=== PATIENT | male | born 1985 | race Caucasian/White ===

== ENCOUNTER 2016-06-30 14:56 | Emergency (ER) | payer BC ==
[2016-06-30 15:02] VITALS: TEMP 98.4
--- NOTE | 2016-06-30 15:22 | EDPHY ---
H & P Stated Complaint: 2-3 DAYS L SISDED TESTICULAR PAIN/DENIES TRAUMA HPI/ROS: CHIEF COMPLAINT: Testicular pain HISTORY OF PRESENT ILLNESS: Patient complains of left-sided testicular pain that started evening. Gradual onset. Colicky intermittent pain. The pain was mild to moderate. It does improve in the evening but returns in the morning when he gets up. No erythema or swelling of the testicle. No fever chills. No painful urination. No painful ejaculation. Pain does radiate up to the left groin. No abdominal pain. No flank pain. No hematuria. Patient is monogamous with his and has no history of sexually transmitted infection. No history of torsion. No other associated complaints or modifying factors. REVIEW OF SYSTEMS: Ten systems reviewed and are negative unless otherwise noted in the HPI EXAMINATION General Appearance: Alert, no distress Head: normocephalic, atraumatic Eyes: Pupils equal and round, no conjunctival pallor or injection ENT, Mouth: Mucous membranes moist Neck: Normal inspection, supple, non-tender Respiratory: No retractions or distress. Cardiovascular: Pulses are intact distally Gastrointestinal: Abdomen is soft and nontender. No tympany rigidity. No flank pain. : Normal appearance of the penis. No discharge from the meatus. Circumcised penis. Testicular exam is positive for tenderness to the left testicle. Both testes are descended. Cremasteric is intact bilaterally. No erythema, warmth or fluctuance to the scrotum. Skin: Warm and dry, no rash. No erythema or edema. DIFFERENTIAL DIAGNOSES: Including but not limited to varicocele, hydrocele, epididymitis, torsion MDM: 3:15 p.m. Left testicular pain that has been present since . Completely normal examination of the mild tenderness to palpation. Stat ultrasound was ordered to rule out torsion. I suspect this will be a varicocele versus epididymitis. He is in no acute distress. He will provided during a clean urine sample force. 4:30 p.m. Notified by radiologist Dr. Robbins. No torsion of the testicles. Good flow bilaterally. There are small bilateral hydroceles. There is mild epididymitis on the left. No other acute findings. 4:30 p.m. I have informed the patient of this finding. He informs me that there is 0% chance of sexually transmitted infection. Based on this I will treat him with Levaquin, but I informed him of the risks of inadequate therapy should he positive for gonorrhea chlamydia. He is comfortable assuming this risk. I informed him of the risks associated with for quinolone use an Achilles tendon rupture. I informed him that he should not engage in any plyometric or explosive exercises due to the medication and due to the diagnosis of epididymitis. I will treat him for 7 days and referred to Urology for definitive care. GC and chlamydia labs are pending at this time. SUPERVISION: This patient was independently evaluated without direct examination by the attending physician. Case was discussed with attending physician. Source: Patient Exam Limitations: No limitations - Personal History Current Tetanus/Diphtheria Vaccine: Yes - Medical/Surgical History Hx Asthma: No Hx Chronic Respiratory Disease: No Hx Diabetes: No Hx Cardiac Disease: No Hx Renal Disease: No Hx Cirrhosis: No Hx Alcoholism: No Hx HIV/AIDS: No Hx Splenectomy or Spleen Trauma: No Other PMH: PLEOMORPHIC ADENOMA/R AC JOINT SHOULDER SURG - Social History Smoking Status: Never smoked Constitutional: Initial Vital Signs Temperature (C) 98.4 F 06/30/16 14:59 Heart Rate 72 06/30/16 14:59 Respiratory Rate 16 06/30/16 14:59 Blood Pressure 137/96 H 06/30/16 14:59 O2 Sat (%) 97 06/30/16 14:59 O2 Delivery Mode Room Air Allergies/Adverse Reactions: No Known Allergies Allergy (Unverified 06/30/16 14:59) Home Medications: Medication Instructions Recorded levOFLOXACIN [Levaquin] 500 mg PO DAILY #7 tablet 06/30/16 Medical Decision Making - Data Points Laboratory Results: 06/30/16 06/30/16 15:26 15:26 Urine Color YELLOW Urine Appearance CLEAR Urine pH 6.0 (5.0-7.5) Ur Specific [place] 1.018 (1.002-1.030) Urine Protein NEGATIVE (NEGATIVE) Urine Ketones NEGATIVE (NEGATIVE) Urine Blood NEGATIVE (NEGATIVE) Urine Nitrate NEGATIVE (NEGATIVE) Urine Bilirubin NEGATIVE (NEGATIVE) Urine Urobilinogen NEGATIVE EU EU (0.2-1.0) Ur Leukocyte Esterase NEGATIVE (NEGATIVE) Ur Culture Indicated? NOT INDICATED (NI) Urine Glucose NEGATIVE (NEGATIVE) C.trachomatis RNA (TMA) Pending N.gonorrhoeae RNA (TMA) Pending Departure - Departure Disposition: Home, Routine, Self-Care Clinical Impression: Testicular pain, left, Acute epididymitis Condition: Good Instructions: Epididymitis (ED), Testicle Pain (ED) Additional Instructions: Levaquin as discussed. Scrotal elevation. Ibuprofen for 5-7 days. Follow up with Urology for definitive care. Referrals: NONE *PRIMARY CARE P,. [Primary Care Provider] - As per Instructions Estrada Awad MD [Medical Doctor] - As per Instructions Prescriptions: levOFLOXACIN [Levaquin] 500 mg PO DAILY #7 tablet
[2016-06-30 15:41] LABS: COLOR YELLOW; LEUKOCYTE ESTERASE,URINE NEGATIVE (NEGATIVE); NITRITE,URINE NEGATIVE (NEGATIVE)
[2016-06-30 16:56] VITALS: BP 123/75; PULSE 74; RESP 18; O2SAT 96
[2016-07-01 14:05] LABS: CHLAMYDIA AMPLIFICATION GENPRB NEGATIVE (NEGATIVE)
== END 2016-06-30 16:55 | disposition home or self-care (01) ==
DX: N45.1 Epididymitis (principal)